=== PATIENT | female | born 1965 | race Caucasian/White ===

== ENCOUNTER 2024-07-30 14:17 | Emergency (ER) | payer OTHER ==
[~2024-07-30] VITALS: Ht 157.5 cm; Wt 93.0 kg
[2024-07-30] MEDS ORDERED: METOCLOPRAMIDE HCL 10 MG/2 ML VIAL ONE (14:39)
[2024-07-30] MEDS ORDERED: diphenhydrAMINE 50 MG/1 ML VIAL ONE (14:39)
[2024-07-30] MEDS: IV NORMAL SALINE 1000 ML BAG IV ONE (14:45)
[2024-07-30] MEDS: diphenhydrAMINE 50 MG/1 ML VIAL IV ONE (14:45)
[2024-07-30] MEDS: METOCLOPRAMIDE HCL 10 MG/2 ML VIAL IV ONE (14:46)
[2024-07-30 15:05] LABS: CARBON DIOXIDE 29 mmol/L (21-32); CHLORIDE 99 mmol/L (98-107); CREATININE 0.8 mg/dL (0.6-1.3); EOSINOPHILS # (AUTO) 0.1 K/uL (0.0-0.7); EOSINOPHILS % (AUTO) 2.3 % (0.0-7.0); GLUCOSE 122 mg/dL (74-106); HEMATOCRIT 42.9 % (31.2-41.9); HEMOGLOBIN 14.5 g/dL (10.9-14.3); LYMPHOCYTES # (AUTO) 0.6 K/uL (0.8-4.8); LYMPHOCYTES % (AUTO) 12.3 % (20.5-51.5); MEAN CORPUSCULAR HEMOGLOBIN 37.8 uug (24.7-32.8); MEAN CORPUSCULAR HGB CONC 34 g/dL (32.3-35.6); MEAN CORPUSCULAR VOLUME 111.4 fL (75.5-95.3); MONOCYTES # (AUTO) 0.7 K/uL (0.1-1.30); MONOCYTES % (AUTO) 13.5 % (0.0-11.0); NEUTROPHILS # (AUTO) 3.6 K/uL (1.8-8.9); NEUTROPHILS % (AUTO) 70.9 % (38.5-71.5); PLATELET COUNT (AUTO) 206 K/uL (179-408); POTASSIUM 3.7 mmol/L (3.5-5.1); RED BLOOD CELL COUNT(AUTO) 3.85 MIL/uL (3.63-4.92); RED CELL DISTRIBUTION WIDTH 17.5 % (12.3-17.7); SODIUM SERUM 137 mmol/L (136-145); UREA NITROGEN, BLOOD 22 mg/dL (7-18); WHITE BLOOD COUNT (AUTO) 5.1 K/uL (3.8-11.8)
[2024-07-30 15:07] LABS: DIFFERENTIAL COMMENT 1
[2024-07-30 15:18] LABS: ALANINE AMINOTRANSFERASE 36 U/L (14-59); ALBUMIN 3.4 g/dL (3.4-5.0); ALKALINE PHOSPHATASE 225 U/L (50-136); ASPARTATE AMINOTRANSFERASE 30 U/L (15-37); BILIRUBIN,DIRECT 0.2 mg/dL (0.0-0.2); BILIRUBIN,TOTAL 0.6 mg/dL (0.2-1.0); TOTAL PROTEIN, SERUM 7.6 g/dL (6.4-8.2)
[2024-07-30 15:36] LABS: NT-PRO BNP 310 pg/mL (0-125)
[2024-07-30] MEDS ORDERED: METO-295 PO (17:03)
[2024-07-30 17:41] VITALS: BP 124/71; O2SAT 97
== END 2024-07-30 17:42 | disposition home or self-care (01) ==
LOC: ER 14:21
DX: R11.2 Nausea with vomiting, unspecified (principal); R07.9 Chest pain, unspecified; E03.9 Hypothyroidism, unspecified; Z88.0 Allergy status to penicillin; Z88.2 Allergy status to sulfonamides; Z91.041 Radiographic dye allergy status; Z95.2 Presence of prosthetic heart valve; Z98.890 Other specified postprocedural states; Z86.79 Personal history of other diseases of the circulatory system
CPT/HCPCS: 99285; 96374; 96361; 71045; 96375; 80076; 80048; 83880; 83735; 85025; 85730; 84484; 36415; 93005; J1200; J2765; J7040; A4606; A4663

== ENCOUNTER 2024-08-17 11:11 | Emergency (ER) | payer OTHER ==
[~2024-08-17] VITALS: Ht 157.5 cm; Wt 95.3 kg
[~2024-08-17 11:11] MED LIST: METO-295 PO
[2024-08-17] MEDS: HYDROCORTISONE SOD SUCCINATE 100 MG/2 ML VIAL IV ONE (12:00)
[2024-08-17] MEDS: diphenhydrAMINE 50 MG/1 ML VIAL IV ONE (12:00)
[2024-08-17 12:26] LABS: BASOPHILS % (AUTO) 0.5 % (0.0-2.0); EOSINOPHILS % (AUTO) 0.8 % (0.0-7.0); HEMATOCRIT 37.1 % (31.2-41.9); HEMOGLOBIN 12.9 g/dL (10.9-14.3); LYMPHOCYTES # (AUTO) 0.4 K/uL (0.8-4.8); LYMPHOCYTES % (AUTO) 7.2 % (20.5-51.5); MEAN CORPUSCULAR HEMOGLOBIN 39.3 uug (24.7-32.8); MEAN CORPUSCULAR HGB CONC 35 g/dL (32.3-35.6); MONOCYTES # (AUTO) 0.4 K/uL (0.1-1.30); MONOCYTES % (AUTO) 7.7 % (0.0-11.0); NEUTROPHILS # (AUTO) 4.7 K/uL (1.8-8.9); NEUTROPHILS % (AUTO) 83.8 % (38.5-71.5); PLATELET COUNT (AUTO) 181 K/uL (179-408); RED BLOOD CELL COUNT(AUTO) 3.28 MIL/uL (3.63-4.92); RED CELL DISTRIBUTION WIDTH 17.9 % (12.3-17.7); WHITE BLOOD COUNT (AUTO) 5.6 K/uL (3.8-11.8)
[2024-08-17 12:29] LABS: DIFFERENTIAL COMMENT 1
[2024-08-17] MEDS ORDERED: HYDROCORTISONE SOD SUCCINATE 100 MG/2 ML VIAL IV ONE ×2 (12:37→14:36)
[2024-08-17] MEDS ORDERED: IV NORMAL SALINE 250 ML IV ONE (12:37)
[2024-08-17] MEDS ORDERED: diphenhydrAMINE 50 MG/1 ML VIAL ONE ×2 (12:37→14:36)
[2024-08-17] MEDS ORDERED: IOHEXOL 350 100 ML INFUS..BTL ONE (12:38)
[2024-08-17] MEDS ORDERED: SWABABLE VALVE TRANSFER SET EA MC ONE (12:38)
[2024-08-17 12:41] LABS: ALANINE AMINOTRANSFERASE 33 U/L (14-59); ALBUMIN 3.7 g/dL (3.4-5.0); ALKALINE PHOSPHATASE 253 U/L (50-136); ASPARTATE AMINOTRANSFERASE 27 U/L (15-37); BILIRUBIN,DIRECT 0.3 mg/dL (0.0-0.2); BILIRUBIN,TOTAL 0.8 mg/dL (0.2-1.0); CALCIUM 9.1 mg/dL (8.5-10.1); CARBON DIOXIDE 27 mmol/L (21-32); CHLORIDE 99 mmol/L (98-107); CREATININE 0.7 mg/dL (0.6-1.3); GLUCOSE 99 mg/dL (74-106); POTASSIUM 4.1 mmol/L (3.5-5.1); SODIUM SERUM 137 mmol/L (136-145); TOTAL PROTEIN, SERUM 7.8 g/dL (6.4-8.2); UREA NITROGEN, BLOOD 22 mg/dL (7-18)
[2024-08-17 12:49] LABS: *BILIRUBIN,URIN NEGATIVE (NEGATIVE); *BLOOD, URINE NEGATIVE (NEGATIVE); *CLARITY,URINE CLEAR (CLEAR); *COLOR,URINE YELLOW (YELLOW); *KETONES,URINE NEGATIVE (NEGATIVE); *PROTEIN,URINE NEGATIVE (NEGATIVE); LEUKOCYTE ESTERASE ,URINE NEGATIVE (NEGATIVE); NITRITE, URINE NEGATIVE (NEGATIVE); UGLUCOSE 3+ (NEGATIVE)
[2024-08-17 13:00] LABS: BACTERIA,URINE FEW /HPF (NONE SEEN); SQUAMOUS EPITHELIAL CELL,UR FEW /HPF (NONE SEEN); WBC,URINE 0-3 /HPF (0-3)
[2024-08-17 17:58] VITALS: BP 133/84; TEMP 98; O2SAT 99
== END 2024-08-17 17:16 | disposition home or self-care (01) ==
LOC: ER 11:11
DX: G45.9 Transient cerebral ischemic attack, unspecified (principal); E03.9 Hypothyroidism, unspecified; Z88.0 Allergy status to penicillin; Z88.2 Allergy status to sulfonamides; Z91.041 Radiographic dye allergy status; Z95.2 Presence of prosthetic heart valve
CPT/HCPCS: 36415; 70496; 84484; 85025; 85730; A4606; A4663; J1200; J1720; Q9967